=== PATIENT | female | born 1965 | race Caucasian/White ===

== ENCOUNTER 2021-08-07 13:58 | Emergency (ER) | payer OTHER ==
[2021-08-07 14:35] VITALS: BMI 28.8
[2021-08-07] MEDS ORDERED: METOCLOPRAMIDE HCL 10 MG TABLET (FP) PO ONE ×2 (16:33→16:37)
[2021-08-07] MEDS ORDERED: SODIUM CHLORIDE 0.9% 500 ML INFUS.BAG IV ONE (16:33)
[2021-08-07] MEDS ORDERED: METOCLOPRAMIDE HCL INJECTION 10 MG/2 ML VIAL IVPUSH ONE (16:56)
[2021-08-07] MEDS ORDERED: ACETAMINOPHEN 1000 MG/100 ML VIAL IVPB ONE (16:57)
[2021-08-07] MEDS ORDERED: ACETAMINOPHEN INJECTION 100 ML IVPB ONE (17:02)
[2021-08-07] MEDS ORDERED: diphenhydrAMINE HCL 25 MG CAPSULE (FP) PO ONE ×2 (17:11→17:14)
[2021-08-07 17:46] LABS: BASO % 0.7 % (0-2.0); EOS % 4.2 % (0-4.5); HEMATOCRIT 42.6 % (32.4-45.2); HEMOGLOBIN 14.2 GM/dL (10.7-15.3); MCH 28.6 pg (25.7-33.7); MCHC 33.3 g/dl (32.0-36.0); MEAN CELL VOLUME 86.1 fl (80-96); MEAN PLT VOLUME 9.6 fl (7.5-11.1); NEUT % 52.1 % (42.8-82.8); PLATELET COUNT 344 10^3/uL (134-434); RBC 4.95 M/mm3 (3.60-5.2); WHITE BLOOD COUNT 6.5 K/mm3 (4.0-10.0)
[2021-08-07 17:56] LABS: CHLORIDE 104 mmol/L (98-107); SODIUM 139 mmol/L (136-145)
[2021-08-07 17:58] LABS: ANION GAP 6 MMOL/L (8-16); BLOOD UREA NITROGEN 9.5 mg/dL (7-18); CALCIUM 9.7 mg/dL (8.5-10.1); CO2 30 mmol/L (21-32)
[2021-08-07 17:59] LABS: GLUCOSE,RANDOM 114 mg/dL (74-106)
[2021-08-07 18:01] LABS: CREATININE 0.7 mg/dL (0.55-1.3); SGOT/AST 122 U/L (15-37); SGPT/ALT 232 U/L (13-61)
[2021-08-07 18:03] LABS: BILIRUBIN,TOTAL 0.5 mg/dL (0.2-1)
[2021-08-07 18:04] LABS: ALK PHOS 269 U/L (45-117)
[2021-08-07 18:45] VITALS: TEMP 96.7
[2021-08-07 19:51] VITALS: BP 100/51; PULSE 60
== END 2021-08-07 19:57 | disposition left against medical advice (07) ==
LOC: JER 13:58
PROC: 3E033GC Introduction of Other Therapeutic Substance into Peripheral Vein, Percutaneous Approach (ICD-10-PCS; principal; 2021-08-07)
DX: R51.9 Headache, unspecified (principal); R42 Dizziness and giddiness; M54.2 Cervicalgia
CPT/HCPCS: 36415; 70450-TC; 72125-TC; 76705-TC; 80053; 82550; 84443; 84484; 85025; 93005; 93010; 99285-25; J0131

== ENCOUNTER 2022-12-13 17:04 | Emergency (ER) | payer OTHER ==
[2022-12-13 17:17] VITALS: BP 108/63; PULSE 80; RESP 18; TEMP 98.5; BMI 29.1
[2022-12-13] MEDS ORDERED: ACETAMINOPHEN 325 MG TABLET (FP) PO ONE (18:16)
[2022-12-13] MEDS ORDERED: KETOROLAC TROMETHAMINE 30 MG/1 ML VIAL IM ONE (18:16)
[2022-12-13] MEDS ORDERED: LIDOCAINE 5% TOPICAL PATCH TP ONE (18:16)
[2022-12-13] MEDS ORDERED: diazePAM 5 MG TABLET PO ONE (18:16)
[2022-12-13] MEDS ORDERED: diazePAM 5 MG TABLET ONE (18:34)
[2022-12-13] MEDS ORDERED: KETOROLAC TROMETHAMINE 30 MG/1 ML VIAL ONE (18:34)
[2022-12-13] MEDS ORDERED: ACETAMINOPHEN 325 MG TABLET (FP) ONE (18:34)
[2022-12-13] MEDS ORDERED: LIDOCAINE 5% TOPICAL PATCH ONE (18:34)
[2022-12-13 18:54] LABS: PH,URINE 7.5 (5.0-8.0); URINE APPEARANCE CLEAR; URINE BILIRUBIN NEGATIVE (NEGATIVE); URINE COLOR YELLOW; URINE GLUCOSE (UA) NEGATIVE (NEGATIVE); URINE KETONE NEGATIVE (NEGATIVE); URINE LEUK ESTERASE NEGATIVE (NEGATIVE); URINE NITRITE NEGATIVE (NEGATIVE); URINE PROTEIN NEGATIVE (NEGATIVE); URINE UROBILINOGEN 0.2 mg/dL (0.2-1.0)
[2022-12-13] MEDS ORDERED: LIDOCAINE PATCH REMOVAL MC SCH (22:00)
== END 2022-12-13 20:58 | disposition home or self-care (01) ==
LOC: JER 17:04
PROC: 3E0233Z Introduction of Anti-inflammatory into Muscle, Percutaneous Approach (ICD-10-PCS; principal; 2022-12-13)
DX: M54.50 Low back pain, unspecified (principal)
CPT/HCPCS: 72131-TC; 81003; 87077; 87086; 99284-25